=== PATIENT | male | born 1980 | race Caucasian/White ===

== ENCOUNTER → 2019-03-19 | Outpatient (CLI) | payer OTHER | END | disposition home or self-care (01) | LOC: WOUND 08:50 | PROVIDERS: ATTEND Internal Medicine | DX: I83.015 Varicose veins of right lower extremity with ulcer other part of foot (principal); L97.811 Non-pressure chronic ulcer of other part of right lower leg limited to breakdown of skin; L97.221 Non-pressure chronic ulcer of left calf limited to breakdown of skin; L84 Corns and callosities | CPT/HCPCS: 99213 ==